=== PATIENT | female | born 1950 | race Caucasian/White ===

== ENCOUNTER 2016-06-14 10:47 | Outpatient (CLI) | payer OTHER ==
--- NOTE | 2016-06-14 12:55 | DIAGNOSTIC IMAGING REPORT ---
PROCEDURE: XR MAJOR JT INJ OR ASPIRATION INDICATION: OSTEOARTHRITIS OF LT HIP TECHNIQUE: The patient was advised of the usual risks and complications including infection, bleeding, and allergy. Supine position. Following sterile preparation and 1% lidocaine anesthetic, fluoroscopic guidance 2.0 minutes, 976.88 mGy) was utilized to place a 22-gauge spinal needle into the anterolateral aspect of the left joint. Intraarticular position was confirmed with 2 mL of Isovue 200 contrast material. Subsequently, a 6 mL solution (2 mL 40 mg/mL Kenalog, 2 mL 1% lidocaine, 2 mL 0.5% Marcaine) was infused and the needle was withdrawn. COMPARISON: Comparison made radiographs of the pelvis and left hip from [facility] on 05/31/2016. FINDINGS: Three AP views. Confirmation of intraarticular injection. Moderate arthritic changes of the left hip joint. The patient tolerated the procedure reasonably well and was discharged home in satisfactory condition with instructions to resume routine activity the following day, and to call for any untoward symptoms (increasing pain/swelling). IMPRESSION: 1. Successful fluoroscopically guided therapeutic injection of the left hip joint.
== END 2016-06-14 23:00 ==
LOC: XR SRH 10:47
PROC: 3E0U33Z Introduction of Anti-inflammatory into Joints, Percutaneous Approach (ICD-10-PCS; principal; 2016-06-14)
PROC: BQ111ZZ Fluoroscopy of Left Hip using Low Osmolar Contrast (ICD-10-PCS; 2016-06-14)
DX: M16.12 Unilateral primary osteoarthritis, left hip (principal)
CPT/HCPCS: 82445